=== PATIENT | male | born 1955 | race Caucasian/White ===

== ENCOUNTER → 2016-11-03 | Day surgery (SDC) | payer BC ==
[~2016-11-03] VITALS: Ht 182.9 cm; Wt 122.5 kg
[~2016-11-03] MED LIST: ACETYLCYSTEINE 20% 30 ML VIAL As Ordered ONE; ACETYLCYSTEINE 20% 30 ML VIAL XX ONE; ALBU83IN INH; CALC600T21 PO; DILT360C16 PO; HYDR25TAB PO; LIDOCAINE 2% INJ 100 MG/5 ML SDV (FOR ANES.) As Ordered ONE; LOSA50TA20 PO; LR 1,000 ML IV SCH; MAGN1TAB25 PO; MIDAZOLAM INJ 2 MG/2 ML VIAL (J2250) As Ordered ONE; MONT10TA2 PO; MULT1TAB10 PO; NUCA1INJ SC; POTASSIUM CITRATE PO; PRED20TA PO; PRIL20CA9 PO; PRIL40CA PO; PROPOFOL 200 MG/20 ML VIAL As Ordered ONE; SYMB16INH INH; TIOT18INH INH; VENTOLIN INH; ZITH250T PO; ZYRT10TA2 PO; fentaNYL 100 MCG/2 ML INJECTION (J3010) As Ordered ONE
--- NOTE | 2016-11-03 08:32 | ROOR ---
Patient Name: Kvng Miller Procedure Date: 11/03/2016 7:20 AM Date of : 1955 Age: 61 Gender: Male Note Status: Finalized Procedure: Upper GI endoscopy Indications: Therapeutic procedure, Esophageal reflux Providers: Odell LANE MD Referring MD: Odell Cervantes MD Requesting Provider: Medicines: Monitored Anesthesia Care Complications: No immediate complications. Procedure: Pre-Anesthesia Assessment: - The heart rate, respiratory rate, oxygen saturations, blood pressure, adequacy of pulmonary ventilation, and response to care were monitored throughout the procedure. The Endoscope was introduced through the mouth, and advanced to the second part of duodenum. The upper GI endoscopy was accomplished without difficulty. The patient tolerated the procedure well. Findings: There were esophageal mucosal changes secondary to established long-segment Hardwick's disease present in the lower third of the esophagus. The maximum longitudinal extent of these mucosal changes was 4 cm in length. Circumferential radiofrequency ablation of Hardwick's esophagus was performed using the Barrx 360 Express catheter and balloon-based endoscopic ablation system. With the endoscope in place, the position and extent of the Hardwick's mucosa and the anatomic landmarks were noted. Endoscopic visualization identified an ablation site. The Hardwick's mucosa was irrigated with water. A guidewire was passed down the biopsy channel of the endoscope. As the endoscope was withdrawn from the mouth, the guidewire was left in place. An auto-sizing radiofrequency ablation balloon catheter was passed transorally over the guidewire into the esophagus. The endoscope was introduced in a [id number]-br-[id number] manner with the ablation catheter. Under direct endoscopic visualization, the balloon ablation catheter was positioned so that the proximal edge of the electrode was slightly above the proximal edge of the Hardwick's mucosa. The balloon was automatically inflated, and energy was applied at 12 J/cm2. The balloon electrode was moved 4 cm distally, so that the proximal edge of the electrode was aligned with the distal edge of the ablation zone. The process of balloon inflation and ablation was repeated until the top of the gastric folds was reached. The ablation catheter and guidewire were removed, and the balloon was cleaned. The ablation zone was then cleaned of overlying coagulative debris using irrigation and suction via the endoscope and a cleaning cap. The guidewire was reinserted, and then the ablation catheter was reintroduced into the esophagus over the wire. The ablation catheter was positioned under direct endoscopic visualization so that the proximal edge of the electrode was at the proximal edge of the ablation zone. Reinflation and a second round of ablation were performed with the application of 10 J/cm2 to re-treat the Hardwick's epithelium already treated with the first round of ablation. The ablation catheter and guidewire were then removed. The areas of the esophagus where Hardwick's mucosa had been ablated were then examined with the endoscope. There was a moderate amount of unablated Hardwick's esophagus present. Focal radiofrequency ablation of Hardwick's esophagus was performed. With the endoscope in place, the position and extent of the Hardwick's mucosa and the anatomic landmarks including proximal and distal extent of Hardwick's mucosa were noted. Endoscopic visualization identified an ablation site including the entire visible Hardwick's segment. The Hardwick's mucosa was irrigated with water. The endoscope was then removed from the patient. The Barrx-60 radiofrequency ablation catheter was attached to the tip of the endoscope. The endoscope with the attached radiofrequency ablation catheter was then passed transorally under direct vision into the esophagus and advanced to the areas of Hardwick's mucosa. The radiofrequency ablation catheter was placed in contact with the surface of the Hardwick's mucosa under direct visualization and energy was applied twice at 10 J/cm2. Ablation was repeated in a likewise fashion to all visible Hardwick's mucosa. The areas of the esophagus where Hardwick's mucosa had been ablated were examined. The entire examined stomach was normal. The examined duodenum was normal. Impression: - Esophageal mucosal changes secondary to established long-segment Hardwick's disease. Treated with radiofrequency ablation. - Normal stomach. - Normal examined duodenum. - No specimens collected. Recommendation: - My Office will call you shortly to re-schedule for the next treatment session. Start a full liquid diet today. Eat a soft diet for one week. Continue your usual Reflux medication twice a day indefinitely. You may not need pain medications, but I would recommend you fill the scripts provided, just in case: 1) Viscous Lidocaine 2%- 10 ml every 4 hrs as needed for modeate chest pain. 2) Carafate suspension-10 ml every 6-8 hrs for 1 month. - (the script was sent to your pharmacy on file) Odell Lane MD Odell LANE MD 11/03/2016 8:31:58 AM This report has been signed electronically. Number of Addenda: 0 Note Initiated On: 11/03/2016 7:20 AM Estimated Blood Loss: Estimated blood loss: none.
[2016-11-03 09:15] VITALS: BP 136/66
== END | disposition home or self-care (01) ==
LOC: M SDC 06:33
PROVIDERS: ATTEND Internal Medicine Gastroenterology
DX: K22.70 Barrett's esophagus without dysplasia (principal); K21.9 Gastro-esophageal reflux disease without esophagitis; I10 Essential (primary) hypertension; J45.909 Unspecified asthma, uncomplicated; G47.33 Obstructive sleep apnea (adult) (pediatric); G89.29 Other chronic pain; Z79.899 Other long term (current) drug therapy
CPT/HCPCS: 43257; J2250; J3010

== ENCOUNTER → 2017-01-05 | Day surgery (SDC) | payer BC ==
[~2017-01-05] VITALS: Ht 182.9 cm; Wt 124.7 kg
[~2017-01-05] MED LIST changes: -ACETYLCYSTEINE 20% 30 ML VIAL XX ONE; +ALEV220C2 PO; +CLAR10CA3 PO; +GLYCOPYRROLATE INJ 0.2 MG/ML 2 ML VIAL As Ordered ONE; +NEOSTIGMINE 1MG/ML 5 ML SYRINGE (J2710) As Ordered ONE; +NORCO, ANEXSIA 5/325MG TABLET (HYDROcodone/ACETAMINOPHEN) PO PRN; +ONDANSETRON 4MG/2ML VIAL (J2405) As Ordered ONE; +ONDANSETRON 4MG/2ML VIAL (J2405) IV PRN; +PRED10PA PO; -PROPOFOL 200 MG/20 ML VIAL As Ordered ONE
--- NOTE | 2017-01-05 08:29 | ROOR ---
Patient Name: Kvng Miller Procedure Date: 01/05/2017 6:37 AM Date of : 1955 Age: 61 Gender: Male Note Status: Finalized Procedure: Upper GI endoscopy Indications: Therapeutic procedure, For therapy of Hardwick's esophagus Providers: Odell LANE MD Referring MD: Odell Cervantes MD Requesting Provider: Medicines: General Anesthesia Complications: No immediate complications. Procedure: Pre-Anesthesia Assessment: - The heart rate, respiratory rate, oxygen saturations, blood pressure, adequacy of pulmonary ventilation, and response to care were monitored throughout the procedure. The Endoscope was introduced through the mouth, and advanced to the second part of duodenum. The upper GI endoscopy was accomplished without difficulty. The patient tolerated the procedure well. Findings: The esophagus and gastroesophageal junction were examined with white light and narrow band imaging (NBI) from a forward view and retroflexed position. There were esophageal mucosal changes consistent with long-segment Hardwick's esophagus. The changes have the appearance of partially treated barretts esophagus, with a smooth 5 cm segment of normal squamous mucosa scattered with patches of salmon colored mucosa. These changes involved the mucosa at the upper extent of the gastric folds (42 cm from the incisors) extending to the Z-line (37 cm from the incisors). The maximum longitudinal extent of these esophageal mucosal changes was 5 cm in length. Circumferential radiofrequency ablation of Hardwick's esophagus was performed using the i2wex 360 Express catheter and balloon-based endoscopic ablation system. With the endoscope in place, the position and extent of the Hardwick's mucosa and the anatomic landmarks were noted. Endoscopic visualization identified an ablation site including the entire visible Hardwick's segment. The Hardwick's mucosa was irrigated with water. A guidewire was passed down the biopsy channel of the endoscope. As the endoscope was withdrawn from the mouth, the guidewire was left in place. An auto-sizing radiofrequency ablation balloon catheter was passed transorally over the guidewire into the esophagus. The endoscope was introduced in a pbas-oj-veze manner with the ablation catheter. Under direct endoscopic visualization, the balloon ablation catheter was positioned so that the proximal edge of the electrode was slightly above the proximal edge of the Hardwick's mucosa. The balloon was automatically inflated, and energy was applied at 10 J/cm2. The balloon electrode was moved 4 cm distally, so that the proximal edge of the electrode was aligned with the distal edge of the ablation zone. The process of balloon inflation and ablation was repeated until the top of the gastric folds was reached. The ablation catheter and guidewire were removed, and the balloon was cleaned. The ablation zone was then cleaned of overlying coagulative debris using irrigation and suction via the endoscope and a cleaning cap. The guidewire was reinserted, and then the ablation catheter was reintroduced into the esophagus over the wire. The ablation catheter was positioned under direct endoscopic visualization so that the proximal edge of the electrode was at the proximal edge of the ablation zone. Reinflation and a second round of ablation were performed with the application of 10 J/cm2 to re-treat the Hardwick's epithelium already treated with the first round of ablation. The ablation catheter and guidewire were then removed. The areas of the esophagus where Hardwick's mucosa had been ablated were then examined with the endoscope. Areas of visible Hardwick's esophagus were completely ablated. The exam was otherwise without abnormality. Impression: - Esophageal mucosal changes consistent with long-segment (5 cm) Hardwick's esophagus. Treated with radiofrequency ablation. - The examination was otherwise normal. - No specimens collected. Recommendation: - Repeat upper endoscopy in 2 months for retreatment. - My Office will call you shortly to re-schedule for the next treatment session. Start a full liquid diet today. Eat a soft diet for one week. Continue your usual Reflux medication twice a day indefinitely. You may not need pain medications, but I would recommend you fill the scripts provided, just in case: 1) Viscous Lidocaine 2%- 10 ml every 4 hrs as needed for modeate chest pain. 2) Carafate suspension-10 ml every 6-8 hrs for [address] MD Odell LANE MD 01/05/2017 8:29:10 AM This report has been signed electronically. Number of Addenda: 0 Note Initiated On: 01/05/2017 6:37 AM Estimated Blood Loss: Estimated blood loss: none.
[2017-01-05 10:40] VITALS: BP 144/76
== END | disposition home or self-care (01) ==
LOC: M SDC 06:26
PROVIDERS: ATTEND Internal Medicine Gastroenterology
DX: K22.70 Barrett's esophagus without dysplasia (principal); I10 Essential (primary) hypertension; M17.0 Bilateral primary osteoarthritis of knee; J45.909 Unspecified asthma, uncomplicated; G47.33 Obstructive sleep apnea (adult) (pediatric); Z79.899 Other long term (current) drug therapy
CPT/HCPCS: 43270; J2250; J2405; J2710; J3010

== ENCOUNTER → 2017-01-18 | Outpatient (CLI) | payer BC ==
[~2017-01-18] MED LIST changes: -ACETYLCYSTEINE 20% 30 ML VIAL As Ordered ONE; -GLYCOPYRROLATE INJ 0.2 MG/ML 2 ML VIAL As Ordered ONE; -LIDOCAINE 2% INJ 100 MG/5 ML SDV (FOR ANES.) As Ordered ONE; -LR 1,000 ML IV SCH; -MIDAZOLAM INJ 2 MG/2 ML VIAL (J2250) As Ordered ONE; -NEOSTIGMINE 1MG/ML 5 ML SYRINGE (J2710) As Ordered ONE; -NORCO, ANEXSIA 5/325MG TABLET (HYDROcodone/ACETAMINOPHEN) PO PRN; -ONDANSETRON 4MG/2ML VIAL (J2405) As Ordered ONE; -ONDANSETRON 4MG/2ML VIAL (J2405) IV PRN; -fentaNYL 100 MCG/2 ML INJECTION (J3010) As Ordered ONE
[2017-01-18 15:28] LABS: MEAN CORPUSCULAR HEMOGLOBIN 30.1 pg (27.0-33.0); MEAN CORPUSCULAR HGB CONC 33.1 g/dl (32.0-36.5); MEAN CORPUSCULAR VOLUME 91.1 fl (80.0-96.0); RED CELL DISTRIBUTION WIDTH 12.5 % (11.5-14.5)
[2017-01-18 16:20] LABS: ALBUMIN/GLOBULIN RATIO 1.48 (1.00-1.93); ALKALINE PHOSPHATASE 82 U/L (45-117); ALT/SGPT 33 U/L (12-78); ANION GAP 8 MEQ/L (8-16); AST/SGOT 16 U/L (15-37); BILIRUBIN,TOTAL 0.5 MG/DL (0.2-1.0); BLOOD UREA NITROGEN 14 MG/DL (7-18); CALCIUM LEVEL 9.5 MG/DL (8.8-10.2); CARBON DIOXIDE LEVEL 30 MEQ/L (21-32); CHLORIDE LEVEL 102 MEQ/L (98-107); CHOLESTEROL LEVEL 213 MG/DL (<200); CREATININE FOR GFR 1.15 MG/DL (0.70-1.30); GLOMERULAR FILTRATION RATE > 60.0 (>49); GLUCOSE, FASTING 105 MG/DL (80-110); MAGNESIUM LEVEL 2.2 MG/DL (1.8-2.4); POTASSIUM SERUM 4.1 MEQ/L (3.5-5.1); SODIUM LEVEL 140 MEQ/L (136-145); TOTAL PROTEIN 6.7 GM/DL (6.4-8.2); TRIGLYCERIDES LEVEL 122 MG/DL (<150)
== END ==
LOC: M LAB 14:15
PROVIDERS: ATTEND Nurse Practitioner
DX: I10 Essential (primary) hypertension (principal)

== ENCOUNTER 2017-05-11 05:50 | Day surgery (SDC) | payer BC ==
[~2017-05-11] VITALS: Ht 182.9 cm; Wt 120.2 kg
[~2017-05-11 05:50] MED LIST changes: -CALC600T21 PO; +CALC600T60 PO
[2017-05-11] MEDS ORDERED: LR 1,000 ML IV ONE (06:15)
[2017-05-11] MEDS ORDERED: LIDOCAINE 1% MDV 20ML VIAL SC ONE (06:15)
[2017-05-11] MEDS ORDERED: NS 500 ML IV SCH (06:15)
[2017-05-11] MEDS ORDERED: LIDOCAINE 2% INJ 100 MG/5 ML SDV (FOR ANES.) As Ordered ONE (07:07)
[2017-05-11] MEDS ORDERED: PROPOFOL 200 MG/20 ML VIAL As Ordered ONE (07:07)
[2017-05-11] MEDS ORDERED: SUCCINYLCHOLINE 100 MG/5 ML SYRINGE (J0330) As Ordered ONE (07:07)
[2017-05-11] MEDS ORDERED: ROCURONIUM BROMIDE 50 MG/5 ML VIAL/SYRINGE As Ordered ONE (07:07)
[2017-05-11] MEDS ORDERED: ONDANSETRON 4MG/2ML VIAL (J2405) As Ordered ONE (07:07)
[2017-05-11] MEDS ORDERED: fentaNYL 100 MCG/2 ML INJECTION (J3010) As Ordered ONE (07:08)
[2017-05-11] MEDS ORDERED: MIDAZOLAM INJ 2 MG/2 ML VIAL (J2250) As Ordered ONE (07:08)
[2017-05-11] MEDS ORDERED: GLYCOPYRROLATE INJ 0.2 MG/ML 2 ML VIAL As Ordered ONE (07:53)
[2017-05-11] MEDS ORDERED: NEOSTIGMINE 1MG/ML 5 ML SYRINGE (J2710) As Ordered ONE (07:53)
[2017-05-11] MEDS ORDERED: PERCOCET 5MG/325MG TAB PO PRN (08:30)
[2017-05-11] MEDS ORDERED: METOCLOPRAMIDE INJ 10MG/2ML VIAL (J2765) IV PRN (08:30)
[2017-05-11] MEDS ORDERED: ONDANSETRON 4MG/2ML VIAL (J2405) IV PRN (08:30)
[2017-05-11] MEDS ORDERED: fentaNYL 100 MCG/2 ML INJECTION (J3010) IV PRN (08:30)
[2017-05-11] MEDS ORDERED: LR 1,000 ML IV SCH (08:30)
[2017-05-11] MEDS ORDERED: MEPERIDINE INJ 25 MG/ML VIAL (J2175) IV PRN (08:30)
[2017-05-11 09:15] VITALS: BP 137/73
--- NOTE | 2017-05-11 09:27 | ROOR ---
Patient Name: Kvng Miller Procedure Date: 05/11/2017 9:20 AM Date of : 1955 Age: 61 Gender: Male Note Status: Finalized Procedure: Upper GI endoscopy Indications: Follow-up of Hardwick's esophagus, For therapy of Hardwick's esophagus Providers: Odell LANE MD Referring MD: 1. No Referring Physician 1. No Referring Physician, Admin. Requesting Provider: Medicines: General Anesthesia Complications: No immediate complications. Procedure: Pre-Anesthesia Assessment: - The heart rate, respiratory rate, oxygen saturations, blood pressure, adequacy of pulmonary ventilation, and response to care were monitored throughout the procedure. The Endoscope was introduced through the mouth, and advanced to the second part of duodenum. The upper GI endoscopy was accomplished without difficulty. The patient tolerated the procedure well. Findings: Hardwick's esophagus was present in the lower third of the esophagus. The maximum longitudinal extent of these mucosal changes was 2 cm in length. Circumferential radiofrequency ablation of Hardwick's esophagus was performed using the Barrx 360 Express catheter and balloon-based endoscopic ablation system. With the endoscope in place, the position and extent of the Hardwick's mucosa and the anatomic landmarks were noted. Endoscopic visualization identified an ablation site including the entire visible Hardwick's segment. A guidewire was passed down the biopsy channel of the endoscope. As the endoscope was withdrawn from the mouth, the guidewire was left in place. An auto-sizing radiofrequency ablation balloon catheter was passed transorally over the guidewire into the esophagus. The endoscope was introduced in a ytaj-an-pqqv manner with the ablation catheter. Under direct endoscopic visualization, the balloon ablation catheter was positioned so that the proximal edge of the electrode was slightly above the proximal edge of the Hardwick's mucosa. The balloon was automatically inflated, and energy was applied at 10 J/cm2. The balloon electrode was moved 4 cm distally, so that the proximal edge of the electrode was aligned with the distal edge of the ablation zone. The process of balloon inflation and ablation was repeated until the top of the gastric folds was reached. The ablation catheter and guidewire were removed, and the balloon was cleaned. The ablation zone was then cleaned of overlying coagulative debris using irrigation and suction via the endoscope and a cleaning cap. The guidewire was reinserted, and then the ablation catheter was reintroduced into the esophagus over the wire. The ablation catheter was positioned under direct endoscopic visualization so that the proximal edge of the electrode was at the proximal edge of the ablation zone. Reinflation and a second round of ablation were performed with the application of 10 J/cm2 to re-treat the Hardwick's epithelium already treated with the first round of ablation. The ablation catheter and guidewire were then removed. The areas of the esophagus where Hardwick's mucosa had been ablated were then examined with the endoscope. Areas of visible Hardwick's esophagus were completely ablated. The entire examined stomach was normal. The examined duodenum was normal. Impression: - Hardwick's esophagus-from 38 to 42 cm circumferential, a few islands at 36 cm. This is much improved from previous treatment. All visible residual Barretts epithelium was treated with radiofrequency ablation today. - Normal stomach. - Normal examined duodenum. - No specimens collected. Recommendation: - My Office will call you shortly to re-schedule for the next treatment session. Start a full liquid diet today. Eat a soft diet for one week. Continue your usual Reflux medication twice a day indefinitely. You may not need pain medications, but I would recommend you fill the scripts provided, just in case: 1) Viscous Lidocaine 2%- 10 ml every 4 hrs as needed for modeate chest pain. 2) Carafate suspension-10 ml every 6-8 hrs for [address] MD Odell LANE MD 05/11/2017 9:27:31 AM This report has been signed electronically. Number of Addenda: 0 Note Initiated On: 05/11/2017 9:20 AM Estimated Blood Loss: Estimated blood loss: none.
[2017-07-06] MEDS ORDERED: SING10TA32 PO (12:37)
== END 2017-05-11 09:38 | disposition home or self-care (01) ==
LOC: M SDC 05:50
PROVIDERS: ATTEND Internal Medicine Gastroenterology
DX: K22.70 Barrett's esophagus without dysplasia (principal); I10 Essential (primary) hypertension; R06.02 Shortness of breath; M17.0 Bilateral primary osteoarthritis of knee; J45.909 Unspecified asthma, uncomplicated; G47.33 Obstructive sleep apnea (adult) (pediatric); Z79.899 Other long term (current) drug therapy; Z79.52 Long term (current) use of systemic steroids
CPT/HCPCS: 43270; J0330; J2250; J2405; J2710; J3010

== ENCOUNTER 2017-07-07 07:03 | Outpatient (CLI) | payer BC ==
[~2017-07-07] VITALS: Ht 182.9 cm; Wt 122.5 kg
[~2017-07-07 07:03] MED LIST changes: +SING10TA32 PO
[2017-07-07] MEDS ORDERED: NS 1,000 ML IV ONE (07:15)
[2017-07-07] MEDS ORDERED: PROPOFOL 200 MG/20 ML VIAL As Ordered ONE (08:58)
[2017-07-07] MEDS ORDERED: LIDOCAINE 2% INJ 100 MG/5 ML SDV (FOR ANES.) As Ordered ONE (08:58)
--- NOTE | 2017-07-07 09:15 | ROOR ---
Patient Name: Kvng Miller Procedure Date: 07/07/2017 8:53 AM Date of : 1955 Age: 62 Room: [facility] Gender: Male Note Status: Finalized Procedure: Upper GI endoscopy Indications: Surveillance procedure, Follow-up of previous radiofrequency ablation treatment of Hardwick's esophagus Providers: Odell LANE MD Referring MD: Odell Cervantes MD Requesting Provider: Medicines: Monitored Anesthesia Care Complications: No immediate complications. Procedure: Pre-Anesthesia Assessment: - The heart rate, respiratory rate, oxygen saturations, blood pressure, adequacy of pulmonary ventilation, and response to care were monitored throughout the procedure. The Endoscope was introduced through the mouth, and advanced to the second part of duodenum. The upper GI endoscopy was accomplished without difficulty. The patient tolerated the procedure well. Findings: The Z-line was variable and was found 38 to 39 cm from the incisors. This was biopsied with a cold forceps for evaluation to rule out Hardwick's Esophagus. The entire examined stomach was normal. The examined duodenum was normal. Impression: - Z-line variable, 38 to 39 cm from the incisors. Biopsied. - Normal stomach. - Normal examined duodenum. Recommendation: - Await pathology results. - Telephone endoscopist for pathology results in 2 weeks. - If biopsies show persistent Barretts, then schedule for HALO ablation. - If biopsies do not show Barretts esophagus, then repeat EGD for sampling in 3 years. - Continue Omeprazole twice a day indefinitely. - (As discussed before, your esophageal motility and antireflux surgery is not indicated.) Odell Lane MD Odell LANE MD 07/07/2017 9:15:26 AM This report has been signed electronically. Number of Addenda: 0 Note Initiated On: 07/07/2017 8:53 AM Estimated Blood Loss: Estimated blood loss: none.
[2017-07-07 09:25] VITALS: BP 150/86
== END 2017-07-07 09:40 | disposition home or self-care (01) ==
LOC: M OPP 07:03
PROVIDERS: ATTEND Internal Medicine Gastroenterology
DX: Z09 Encounter for follow-up examination after completed treatment for conditions other than malignant neoplasm (principal); K22.70 Barrett's esophagus without dysplasia; K22.8 Other specified diseases of esophagus; I10 Essential (primary) hypertension; K21.9 Gastro-esophageal reflux disease without esophagitis; R12 Heartburn; J45.909 Unspecified asthma, uncomplicated; G47.30 Sleep apnea, unspecified; Z79.899 Other long term (current) drug therapy; Z80.1 Family history of malignant neoplasm of trachea, bronchus and lung